=== PATIENT | male | born 1995 | race Hispanic/Latino ===

== ENCOUNTER 2020-01-19 23:29 | Observation (INO) | payer OTHER ==
[2020-01-19] MEDS ORDERED: Ibuprofen 800 MG TAB ONE (23:56)
[2020-01-20 02:49] VITALS: BMI 22.1
[2020-01-20] MEDS ORDERED: Labetalol HCl 100 MG/20 ML VIAL SLOW IVP PRN (05:15)
[2020-01-20] MEDS ORDERED: Morphine 2 MG/ML SYRINGE SLOW IVP PRN (05:15)
[2020-01-20] MEDS ORDERED: Ondansetron PF 4 MG/2 ML Vial IVP PRN (05:15)
[2020-01-20] MEDS ORDERED: Promethazine HCl 12.5 MG in Sodium Chloride 0.9% 50 ML IVPB PRN (05:15)
[2020-01-20] MEDS ORDERED: Guaifenesin DM 100-10/5 ML UDCUP PO PRN (05:15)
[2020-01-20] MEDS ORDERED: Acetaminophen 325 MG TAB PO PRN (05:15)
[2020-01-20] MEDS ORDERED: hydrALAZINE 20 MG/ML VIAL SLOW IVP PRN (05:15)
[2020-01-20] MEDS ORDERED: HYDROcodone/Acetaminophen 5/325 mg Tablet PO PRN (05:15)
[2020-01-20] MEDS ORDERED: cloNIDine 0.1 MG TAB PO PRN (05:15)
--- NOTE | 2020-01-20 05:19 | PDOC.HHP ---
Hospitalist HPI - History of Present Illness Chest pain History of Present Illness: Patient is a 24 year old male with no significant PMH who presents as transfer from [facility] for chest pain. Patient reports a 2 day history of intermittent chest pain in center of chest, it is pleuritic, not tender, no positional. Denies shortness of breath, palpitaitons, nausea, vomiting, diarrhea. He reports some anxiety and panic symptoms in past at stressful times. He had a fever 100.7 and recieved 1g tylenol there, was also swabbed for COVID there, CRP was 8.5, troponin 0.34. EKG nonspecific changes w/ RBBB. ED discussed presumptive dx of acute pericarditis with cardiology Dr Mcmullen who recommended admission for echo and trending cardiac enzymes Hospitalist ROS - Review of Systems Constitutional: denies: fever, chills, sweats, weakness, malaise, other Eyes: denies: pain, vision change, conjunctivae inflammation, eyelid inflammation, redness, other ENT: denies: ear pain, ear discharge, nose pain, nose discharge, nose congestion , mouth pain, mouth swelling, throat pain, throat swelling, other Respiratory: denies: cough, dry, shortness of breath, hemoptysis, SOB with excertion, pleuritic pain, sputum, wheezing, other Cardiovascular: reports: chest pain. denies: palpitations, orthopnea, paroxysmal noc. dyspnea, edema, light headedness, other Gastrointestinal: denies: nausea, vomiting, abdominal pain, diarrhea, constipation, melena, hematochezia, other Genitourinary: denies: dysuria, frequency, incontinence, hematuria, retention, other Musculoskeletal: denies: neck pain, shoulder pain, arm pain, back pain, hand pain, leg pain, foot pain, other Skin: denies: rash, lesions, ana, bruising, other Neurological: denies: weakness, numbness, incoordination, change in speech, confusion, seizures, other All other systems reviewed; all pertinent +/- noted in HPI/Subj Hospitalist History - Past Medical History Other Medical History: no significant PMH - Past Surgical History Past Surgical History: reports: no pertinent history - Family History Family History: reports: no pertinent history - Social History Smoking Status: Never smoker Alcohol: reports: Rare Drugs: reports: none - Exam General Appearance: NAD, awake alert Eye: PERRL, anicteric sclera ENT: normocephalic atraumatic, no oropharyngeal lesions, moist mucosa Neck: supple, symmetric, no JVD, no thyromegaly, no lymphadenopathy, no carotid bruit Heart: RRR, no murmur, no gallops, no rubs, normal peripheral pulses Respiratory: CTAB, no wheezes, no rales, no ronchi, normal chest expansion, no tachypnea, normal percussion Gastrointestinal: soft, non-tender, non-distended, normal bowel sounds, no palpable masses, no hepatomegaly, no splenomegaly, no bruit Extremities: no cyanosis, no clubbing, no edema Skin: normal turgor, no lesions, no rashes Neurological: cranial nerve grossly intact, normal sensation to touch, no weakness, no focal deficits, no new deficit Musculoskeletal: normal tone, normal strength, no muscle wasting Psychiatric: normal affect, normal behavior, A&O x 3 Hospitalist Results - Labs Lab results: Troponin I 0.010 ng/mL (< 0.028) 01/20/20 00:24 Additional comment: VITAL SIGNS [facility] Jan 19, 2020 23:31 YONI Cobos Courtney BP: 136/71 Pulse: 82 Resp: 16 Temp: 98.6 (Oral) Pain: 3 O2 sat: 98 on (Room Air) Time: 01/19/2020 23:31. VITAL SIGNS FriJan 20, 2020 00:00 YONI Sorensen Lee BP: 147/76 (Sitting) MAP: 99 Pulse: 82 (Regular) Resp: 19 (Non-Labored) O2 sat: 96 on (Room Air) Time: 01/20/2020 00:00. VITAL SIGNS FriJan 20, 2020 00:30 YONI Sorensen Lee BP: 125/79 (Sitting) MAP: 94 Pulse: 81 (Regular) Resp: 18 (Non-Labored) O2 sat: 95 on (Room Air) Time: 01/20/2020 00:30. VITAL SIGNS FriJan 20, 2020 01:32 YONI Sorensen Lee BP: 122/54 (Sitting) Pulse: 72 (Regular) Resp: 16 (Non-Labored) Temp: 98.1 (Oral) Pain: 3 (Dull) O2 sat: 99 on (Room Air) Time: 01/20/2020 01:32. - EKG Interpretation EKG: NSR 75 bpm nonspecific T wave changes Hospitalist H&P A/P - Plan Plan: Patient is a 24 year old male with no significant PMH who presents as transfer from [facility] ED for chest pain. # chest pain, suspected acute pericarditis - admit to telemetry - trend troponin, echo ordered - ibuprofen PRN chest pain - ED discussed with Dr Mcmullen who recommended above plan - consider panic attacks as well however elevtaed CRP more suggestive of physical process vs psychiatric
[2020-01-20] MEDS ORDERED: Ibuprofen 800 MG TAB PO PRN (05:22)
[2020-01-20 05:43] LABS: Troponin I 0.013 ng/mL (< 0.028)
[2020-01-20] MEDS ORDERED: Famotidine 20 MG TAB PO SCH (09:00)
[2020-01-20] MEDS ORDERED: Enoxaparin Sodium 40 MG/0.4 ML SYRINGE SC SCH (09:00)
[2020-01-20] MEDS ORDERED: Polyethylene Glycol 3350 17 GM Packet PO SCH (09:00)
[2020-01-20 09:37] LABS: Troponin I Less than 0.010 ng/mL (< 0.028)
--- NOTE | 2020-01-20 15:25 | PDOC.EVN ---
Event Note - Event Note Event Note: Patient reports he is doing well. He denies any chest pains at the moment. He presented with some lower anterior chest pain which was bilateral. Patient reports that he had this pain at times in the past but resolved. He had temperature of 100.7 in the emergency department. His exam is unremarkable. He had a negative chest x-ray. EKG was unremarkable. CRP is elevated. Patient has been placed in observation for possible pericarditis. A COVID test has been sent and the results are pending. Subsequent to the results the patient will have a echocardiogram and a cardiology consult.
[2020-01-20 15:46] VITALS: BP 130/79; TEMP 100.5
--- NOTE | 2020-01-22 11:56 | EKG ---
Test Reason : Blood Pressure : / mmHG Vent. Rate : 075 BPM Atrial Rate : 075 BPM P-R Int : 132 ms QRS Dur : 102 ms QT Int : 366 ms P-R-T Axes : 056 066 029 degrees QTc Int : 408 ms Normal sinus rhythm with sinus arrhythmia Possible Left atrial enlargement Incomplete right bundle branch block Borderline ECG Confirmed by HERLINDA WILLOUGHBY ([id number]), editor dictionary ROCIO SANTILLAN ([id number]) on 01/22/2020 11:55:58 AM Referred By: Confirmed By:HERLINDA WILLOUGHBY
== END 2020-01-20 19:10 | disposition left against medical advice (07) ==
LOC: ERS 23:29 → 2SW 01-20 02:20
PROVIDERS: ADMIT Internal Medicine; ATTEND Internal Medicine
DX: R07.81 Pleurodynia (principal); R50.9 Fever, unspecified; R79.89 Other specified abnormal findings of blood chemistry; I45.10 Unspecified right bundle-branch block; Z20.828 Contact with and (suspected) exposure to other viral communicable diseases
CPT/HCPCS: 36415; 84484; 93005; 96372; G0378; J1650